=== PATIENT | female | born 1995 | race American Indian/Alaskan Native ===

== ENCOUNTER 2021-04-30 10:29 | Day surgery (SDC) | payer BC ==
[~2021-04-30 10:29] MED LIST: SODIUM CHLORIDE 0.9% 1000 ML 1,000 ML IV SCH
--- NOTE | 2021-04-30 12:11 | Anesthesia Consultation ---
Anesthesia Consult and Med Hx Date of service: 04/30/21 - Airway Anesthetic Teeth Evaluation: Good ROM Head & Neck: Adequate Mental/Hyoid Distance: Adequate Mallampati Class: Class II Intubation Access Assessment: Probably Good - Pre-Operative Health Status ASA Pre-Surgery Classification: ASA1 Proposed Anesthetic Plan: General - Pulmonary Hx Smoking: No - Gastrointestinal Hx Ulcer: Yes
--- NOTE | 2021-04-30 12:11 | Anesthesia Day of Surgery ---
Anesthesia Day of Surgery - Day of Surgery Patient Examined: Yes Patient H&P Reviewed: Yes Patient is NPO: Yes
[2021-04-30] MEDS ORDERED: LIDOCAINE MPF (2%) 20 MG/1 ML VIAL 5 ML ONE (12:41)
[2021-04-30] MEDS ORDERED: propofoL 200 MG/20 ML VIAL IV ONE ×2 (12:42→12:49)
--- NOTE | 2021-04-30 13:07 | Procedure Note ---
Date of procedure: 04/30/21 Pre-op diagnosis: Epigastric Pain/ Dyspepsia/ H/O Incidental Gallstones Post-op diagnosis: other (No Peptic Ulcer, Disease noted/ Mild to Moderate ErosiveEsophagitis/ Small,Hiatal Hernia/Gastritis/ R/O Celaic Disease) Procedure: EGD with Biopsy [place]est[place] [facility] [place]: BALA ALEXANDER Estimated blood loss: minimal Pathology: list Specimen disposition: to lab Condition: stable Disposition: same day (Treat with PPI; avoid aspirin and NSAID for 5 days, otherwise resume home medication and F/U in 1 to 2 weeks ([phone]).)
--- NOTE | 2021-04-30 13:51 | Operative Report ---
DATE OF SURGERY: 04/30/2021 PROCEDURE PERFORMED: EGD with biopsy. INDICATIONS: This is a 25-year-old -[place] female who was noted to have gallstones and have dyspeptic symptoms and associated epigastric pain. EGD was done to make sure there was not any associated peptic ulcer disease. DESCRIPTION OF PROCEDURE: Procedure was done after getting informed consent with MAC anesthesia. Instrument was passed through the hypopharynx into the esophagus, which showed some [id number] distal erosive esophagitis. Biopsy was done from the distal esophagus to assess for the severity of the erosive esophagitis and from the mid esophagus to rule out for possible eosinophilic esophagitis. The stomach showed a small hiatal hernia on the retroverted view and some antral gastritis. No peptic ulcer disease was noted within the gastric or the duodenal lumen. The pylorus is patent. The duodenum in the first and the second portion appeared normal. Biopsy was done from the second part to rule out for possible celiac disease. Additional biopsy was done from the gastric antrum, gastric body and angular incisura to rule out for H. pylori and atrophic gastritis. There is minimal bleeding associated with the biopsies. ASSESSMENT: Epigastric pain, dyspepsia. No peptic ulcer disease noted. Mild to moderate erosive esophagitis, small hiatal hernia, gastritis, rule out celiac disease. PLAN: To treat the patient with PPI, have the patient avoid aspirin and aspirin-related products for the next few days and follow up in the office in 1-2 weeks' time. The procedure was done in the GI lab with assistance of the GI lab team, which included the GI nurse, the registered diet technician and with assistance of anesthesia. TID: [id number] RECEIPT: [id number] AVILA/JAZMIN
--- NOTE | 2021-04-30 14:36 | Post Anesthesia Evaluation ---
- Post Anesthesia Evaluation Patient Participated: Yes Airway Patent: Yes Stable Respiratory Function: Yes Nausea/Vomiting: No Temp > 96.8F: Yes Pain Manageable: Yes Adequeate Hydration: Yes Anesthesia Complications: No Block Receding Appropriately: Not Applicable Patient on Ventilator: No
[2021-04-30 21:42] VITALS: BP 123/77
== END 2021-04-30 13:45 | disposition home or self-care (01) ==
LOC: GIO 10:29
DX: R10.13 Epigastric pain (principal); K21.00 Gastro-esophageal reflux disease with esophagitis, without bleeding; K29.50 Unspecified chronic gastritis without bleeding; K44.9 Diaphragmatic hernia without obstruction or gangrene; K31.89 Other diseases of stomach and duodenum; Z79.899 Other long term (current) drug therapy
CPT/HCPCS: 43239; 88305; 88342; J2704; J7030